=== PATIENT | female | born 1955 | race Caucasian/White ===

== ENCOUNTER 2021-10-03 07:27 | Emergency (ER) | payer OTHER, MEDICAID ==
[~2021-10-03] VITALS: Ht 165.1 cm; Wt 65.8 kg
[2021-10-03 07:34] VITALS: BP 156/70
--- NOTE | 2021-10-03 07:39 | NUR ---
MARVIN CURRAN, TO CHAIR Velasquez.
--- NOTE | 2021-10-03 08:13 | NUR ---
PT BROUGHT BACK FROM CT VIA W/C TO BED 10.
[2021-10-03] MEDS ORDERED: LIDOCAINE MPF 1% 0 ML ONE (08:59)
[2021-10-03] MEDS: LIDOCAINE MPF 1% 10 MG/ML VIAL INJ ONE (09:13)
--- NOTE | 2021-10-03 09:15 | NUR ---
CALLED [facility] TO SET UP TRANSPORT. SPOKE WITH KEILA, STATED [facility] WILL BE AVAILABLE FOR [facility] AT 10AM.
--- NOTE | 2021-10-03 10:00 | NUR ---
pt came in via ambulance, [facility]. ambulatory with assist. pt stated she fell and slipped at home. abrasion on forehead with scant bleeding. no active bleeding at this time. denies any pain or discomfort.
[2021-10-03 10:11] VITALS: BP 156/70
--- NOTE | 2021-10-03 10:11 | NUR ---
Patient discharged with v/s stable. Written and verbal after care instructions given and explained. Patient verbalized understanding. Wheel Chair Assisted with to car with transportation planner. All questions addressed prior to discharge. Advised to follow up with PMD.
== END 2021-10-03 09:58 | disposition home or self-care (01) ==
LOC: MED 07:27
DX: S01.91XA Laceration without foreign body of unspecified part of head, initial encounter (principal); I10 Essential (primary) hypertension; E11.9 Type 2 diabetes mellitus without complications; Z79.4 Long term (current) use of insulin; Z79.899 Other long term (current) drug therapy; W18.30XA Fall on same level, unspecified, initial encounter; Y93.89 Activity, other specified; Y92.89 Other specified places as the place of occurrence of the external cause; Y99.8 Other external cause status
CPT/HCPCS: 70450; 72125; 90471; 90715; 99284; J2001

== ENCOUNTER 2021-11-07 21:24 | Emergency (ER) | payer OTHER, MEDICAID ==
[~2021-11-07] VITALS: Ht 157.5 cm; Wt 68.0 kg
[2021-11-07 21:30] VITALS: BP 146/69
--- NOTE | 2021-11-07 21:36 | NUR ---
PT TO BED 8
[2021-11-07] MEDS ORDERED: NACL 0.9% 1,000 ML IV ONE (21:50)
[2021-11-07 22:15] LABS: BASOPHILS # (AUTO) 0.1 K/uL (0.00-0.22); BASOPHILS % (AUTO) 0.7 % (0.0-2.0); EOSINOPHILS # (AUTO) 0.3 K/uL (0-0.4); HEMATOCRIT 35.9 % (36-48); HEMOGLOBIN 12.1 g/dL (12.0-16.0); LYMPHOCYTES # (AUTO) 2.1 K/uL (2.5-16.5); MEAN CORPUSCULAR HEMOGLOBIN 29 pg (27-31); MEAN CORPUSCULAR HGB CONC 34 g/dL (33-37); MEAN CORPUSCULAR VOLUME 87.1 fL (80-94); MONOCYTES # (AUTO) 0.7 K/uL (0.8-1.0); MONOCYTES % (AUTO) 7.8 % (1.7-9.3); NEUTROPHILS # (AUTO) 6.1 K/uL (1.8-7.7); NEUTROPHILS % (AUTO) 65.5 % (42.2-75.2); PLATELET COUNT (AUTO) 284 K/uL (140-450); RED BLOOD CELL COUNT(AUTO) 4.12 MIL/uL (4.20-5.40); RED CELL DISTRIBUTION WIDTH 13.7 % (11.6-13.7); WHITE BLOOD COUNT (AUTO) 9.3 K/uL (4.8-10.8)
[2021-11-07 22:25] LABS: LIPASE 105 U/L (73-393)
[2021-11-07 22:30] LABS: ALBUMIN 3.5 g/dL (3.4-5.0); ANION GAP 13.9 (8-16); CARBON DIOXIDE 26.2 mmol/L (21-32); POTASSIUM 4.1 mmol/L (3.5-5.1); TOTAL BILIRUBIN 0.3 mg/dL (0.0-1.0)
--- NOTE | 2021-11-07 22:38 | NUR ---
PT ambulate to bathroom
[2021-11-07 23:38] LABS: APPEARANCE,URINE CLEAR (CLEAR); BILIRUBIN,URINE NEGATIVE (NEGATIVE); BLOOD, URINE NEGATIVE (NEGATIVE); COLOR,URINE YELLOW (YELLOW); LEUKOCYTE ESTERASE ,URINE NEGATIVE (NEGATIVE); NITRITE, URINE NEGATIVE (NEGATIVE); PH,URINE 6.5 (5.0-9.0); UGLUCOSE 2+ (NEGATIVE)
--- NOTE | 2021-11-08 | NUR ---
PT AMBULATE TO BATHROOM WITH EVEN AND STEADY.
[2021-11-08 00:56] LABS: ACETONE, SERUM NEGATIVE (NEGATIVE)
--- NOTE | 2021-11-08 03:00 | NUR ---
Patient appears to be resting comfortably in bed. Vital Signs within normal limits. Respirations even and unlabored.
--- NOTE | 2021-11-08 05:00 | NUR ---
PT SITTING ON EDGE OF BED. VSS. PT STATES SHE WANTS TO GO HOME. EXPLAINED TO PT THAT NO TRANSPORT IS AVAILABLE UNTIL DAY SHIFT
[2021-11-08 07:10] VITALS: BP 142/74
--- NOTE | 2021-11-08 07:10 | NUR ---
Patient discharged with v/s stable. Written and verbal after care instructions given and explained. Patient verbalized understanding. Ambulatory with steady gait. All questions addressed prior to discharge. Advised to follow up with PMD.
== END 2021-11-08 07:10 | disposition home or self-care (01) ==
LOC: MED 21:24
DX: E11.65 Type 2 diabetes mellitus with hyperglycemia (principal); I10 Essential (primary) hypertension; Z79.4 Long term (current) use of insulin; Z79.899 Other long term (current) drug therapy; Z98.890 Other specified postprocedural states
CPT/HCPCS: 36415; 71045; 80053; 81003; 82009; 82803; 83690; 83880; 85025; 93005; 99285

== ENCOUNTER 2022-08-31 01:27 | Emergency (ER) | payer OTHER, MEDICAID ==
[~2022-08-31] VITALS: Ht 160 cm; Wt 77.1 kg
[2022-08-31 01:27] VITALS: BP 225/115
--- NOTE | 2022-08-31 01:31 | NUR ---
[facility]; PT. PLACED IN BED 12
--- NOTE | 2022-08-31 02:01 | NUR ---
MD White at bedside examining pt.
--- NOTE | 2022-08-31 02:01 | NUR ---
Pt BIB BLS ambulance from [facility] c/o pain to coccyx and R hip/leg s/p fall. Per pt, she fell trying to get on her new bed and landed on her buttocks; (however per EMS, pt fell in the parking lot) (-) LOC (-) blood thinners Pt denies N/V, Headache, dizziness at this time.
[2022-08-31 02:55] LABS: BASOPHILS % (AUTO) 0.5 % (0.0-2.0); EOSINOPHILS # (AUTO) 0.2 K/uL (0-0.4); EOSINOPHILS % (AUTO) 2.3 % (0.0-4.0); HEMATOCRIT 33.7 % (36-48); HEMOGLOBIN 11.3 g/dL (12.0-16.0); LYMPHOCYTES # (AUTO) 2.1 K/uL (2.5-16.5); LYMPHOCYTES % (AUTO) 21.2 % (20.5-51.1); MEAN CORPUSCULAR HEMOGLOBIN 28 pg (27-31); MEAN CORPUSCULAR HGB CONC 34 g/dL (33-37); MEAN CORPUSCULAR VOLUME 84.3 fL (80-94); MONOCYTES # (AUTO) 0.7 K/uL (0.8-1.0); NEUTROPHILS # (AUTO) 6.9 K/uL (1.8-7.7); PLATELET COUNT (AUTO) 301 K/uL (140-450); RED CELL DISTRIBUTION WIDTH 15.2 % (11.6-13.7); WHITE BLOOD COUNT (AUTO) 10.1 K/uL (4.8-10.8)
[2022-08-31 03:13] LABS: ALBUMIN 3.6 g/dL (3.4-5.0); ANION GAP 11.8 (8-16); CARBON DIOXIDE 28.3 mmol/L (21-32); CREATININE 0.8 mg/dL (0.6-1.3); POTASSIUM 4.1 mmol/L (3.5-5.1); TOTAL BILIRUBIN 0.2 mg/dL (0.0-1.0)
[2022-08-31] MEDS ORDERED: ACETAMINOPHEN 325 MG TAB PO ONE (03:50)
--- NOTE | 2022-08-31 04:25 | NUR ---
Patient discharged with v/s stable. Written and verbal after care instructions given and explained. Patient verbalized understanding. Ambulatory with walker to alf. All questions addressed prior to discharge. Advised to follow up with PMD.
[2022-08-31 04:38] VITALS: BP 126/44
== END 2022-08-31 04:25 | disposition home or self-care (01) ==
LOC: MED 01:27
DX: M25.551 Pain in right hip (principal); W18.30XA Fall on same level, unspecified, initial encounter; Y93.89 Activity, other specified; Y92.89 Other specified places as the place of occurrence of the external cause; Y99.8 Other external cause status
CPT/HCPCS: 36415; 71045; 73502; 80053; 82550; 83880; 84484; 85025; 99285